=== PATIENT | male | born 1960 | race Caucasian/White ===

== ENCOUNTER 2018-05-27 22:12 | Emergency (ER) | payer MEDICAID ==
[~2018-05-27] VITALS: Ht 170.2 cm; Wt 82.5 kg
[2018-05-27 22:15] VITALS: BP 146/89
== END 2018-05-27 23:12 | disposition home or self-care (01) ==
LOC: ER 22:13
DX: T78.49XA Other allergy, initial encounter (principal); F84.0 Autistic disorder; I10 Essential (primary) hypertension; X58.XXXA Exposure to other specified factors, initial encounter
CPT/HCPCS: 99281

== ENCOUNTER 2018-11-14 05:44 | Day surgery (SDC) | payer MEDICAID ==
[2018-11-14] VITALS (13 sets, daily range): BP systolic 101–142; BP diastolic 60–89
[~2018-11-14] VITALS: Ht 165.1 cm; Wt 84.4 kg
[~2018-11-14 05:44] MED LIST: ACET-812 PO; CHOL500026 PO; CITRACAL PLUS; CLON0.5T23 PO; DOCUMENT DATE & TIME OF BETA-BLOCKER PO ONE; IBUP-1984 PO; LAMO200T PO; LIDOcaine 2% (20mg/ml) 5ml vial ONE; LORA-269 PO; LORA10TA7 PO; MAGN500T12 PO; METO-384 PO; MULT-16 PO; NIA500ERT PO; REGULOID; SERT100T10 PO; TRAZ-219 PO; dexamethasone sod phosphate 4mg/ml inj. ONE; famotidine 20mg tablet PO ONE; fentaNYL/PF 50MCG/1 ML 2ML syringe ONE; midazolam 2 mg/2 ml injection ONE; propofol inj 20 ML IV ONE; ringers solution, lacted 1,000 ML IV SCH
[2018-11-14 06:40] LABS: BASOPHILS # (AUTO) 0.1 X10'3 (0-0.2); BASOPHILS % (AUTO) 0.7 % (0-1); EOSINOPHILS # (AUTO) 0.2 X10'3 (0-0.9); EOSINOPHILS % (AUTO) 1.6 % (0-6); HEMATOCRIT 45.2 % (42.0-52.0); HEMOGLOBIN 15.4 g/dl (14.0-17.9); LYMPHOCYTES # (AUTO) 1.9 X10'3 (1.1-4.8); LYMPHOCYTES % (AUTO) 17.1 % (21-51); MEAN CORPUSCULAR HEMOGLOBIN 31.1 PG (27.0-31.0); MEAN CORPUSCULAR HGB CONC 34.1 g/dL (33.0-36.5); MEAN CORPUSCULAR VOLUME 91.2 FL (78-98); MEAN PLATELET VOLUME 8.2 FL (7.4-10.4); MONOCYTES # (AUTO) 0.7 X10'3 (0-0.9); MONOCYTES % (AUTO) 5.8 % (2-12); NEUTROPHILS # (AUTO) 8.5 X10'3 (1.8-7.7); NEUTROPHILS % (AUTO) 74.8 % (42-75); PLATELET COUNT 293 X10'3 (140-440); RED BLOOD COUNT 4.95 X10'6 (4.70-6.10); RED CELL DISTRIBUTION WIDTH 13.2 % (11.5-14.5); WHITE BLOOD COUNT 11.3 X10'3 (4.5-11.0)
[2018-11-14 06:58] LABS: ALANINE AMINOTRANSFERASE 30 U/L (12-78); ALBUMIN/GLOBULIN RATIO 0.9 (1.1-1.5); ALKALINE PHOSPHATASE 95 IU/L (46-116); ANION GAP 8 (8-16); ASPARTATE AMINO TRANSFERASE 18 U/L (10-37); BILIRUBIN,TOTAL 0.2 MG/DL (0.1-1.0); BLOOD UREA NITROGEN 8 MG/DL (7-18); BUN/CREATININE RATIO 6.8 (5.4-32.0); CALCIUM 9.3 MG/DL (8.5-10.1); CHLORIDE 104 MMOL/L (99-107); CREATININE 1.18 MG/DL (0.60-1.10); GLUCOSE 102 MG/DL (70-104); POTASSIUM 4.6 MMOL/L (3.5-5.1); SODIUM 140 MMOL/L (135-145); TOTAL CARBON DIOXIDE 28.5 MMOL/L (24-32); TOTAL PROTEIN 8.3 G/DL (6.4-8.2); eGFR 63 ML/MIN
[2018-11-14] MEDS ORDERED: famotidine/PF 10 mg/ml inj IV ONE (07:10)
--- NOTE | 2018-11-14 08:00 | NUR ---
NURSE ACCIDENTALLY DOCUMENTED ON PREOP CHECKLIST THAT THE BETA JULY WAS TAKEN AT 0800 ON 11/15/18, BUT IT WAS REALLY TAKEN AT 0500 ON 11/14/18.
[2018-11-14] MEDS ORDERED: ketorolac trometh. 30mg/ml inj. ONE (08:35)
[2018-11-14] MEDS ORDERED: sevoflurane 250ml liquid IH ONE (08:35)
[2018-11-14] MEDS ORDERED: MIDAZolam 5mg/5ml vial ONE (08:37)
[2018-11-14] MEDS ORDERED: fentaNYL /PF 50mcg/ml 5ml ampule ONE (08:59)
[2018-11-14] MEDS ORDERED: propofol inj 20 ML IV ONE (09:00)
[2018-11-14] MEDS ORDERED: rocuronium 10mg/ml inj IV ONE (09:01)
[2018-11-14] MEDS ORDERED: ceFAZolin 1000mg inj ONE ×2 (09:32)
[2018-11-14] MEDS ORDERED: dexamethasone sod phosphate 4mg/ml inj. ONE (11:01)
[2018-11-14] MEDS ORDERED: ondansetron/PF 4mg/2ml inj ONE (11:01)
[2018-11-14] MEDS ORDERED: gelatin sponge, absorbable (Gelfoam 100) sponge TP ONE (12:36)
--- NOTE | 2018-11-14 14:00 | NUR ---
Received from OR via [facility], accompanied by Anesthesiologist DR BRENNER and report given by Anesthesiolgist. PT VERY DROWSY W/ORAL AIRWAY, VSS. Addendum: 11/14/18 at 1412 by Shayy Guillermo RN Amended: Links added.
--- NOTE | 2018-11-14 16:00 | NUR ---
PT D/CD TO HOME W/C[facility] IN STABLE CONDITION, D/C INSTRUCTIONS GONE OVER AND GIVEN TO CARE[facility]ERS, BOTH VERBALIZED UNDERSTANDING. Addendum: 11/14/18 at 1620 by Shayy Guillermo RN Amended: Links added.
== END 2018-11-14 16:00 | disposition home or self-care (01) ==
LOC: PAS 05:44
PROVIDERS: ATTEND Dentist
DX: K02.9 Dental caries, unspecified (principal); K05.6 Periodontal disease, unspecified; K20.9 Esophagitis, unspecified; F84.0 Autistic disorder; G40.909 Epilepsy, unspecified, not intractable, without status epilepticus; I10 Essential (primary) hypertension; Z79.899 Other long term (current) drug therapy; Z88.8 Allergy status to other drugs, medicaments and biological substances; Z98.890 Other specified postprocedural states
CPT/HCPCS: 36415; 41899; 80053; 85025; 93005; J0690; J1100; J1885; J2001; J2250; J2405; J2704; J3010; J3490; J7120; A7000

== ENCOUNTER 2019-01-09 20:30 | Emergency (ER) | payer MEDICAID ==
[~2019-01-09] VITALS: Ht 177.8 cm; Wt 79.7 kg
[~2019-01-09 20:30] MED LIST changes: -DOCUMENT DATE & TIME OF BETA-BLOCKER PO ONE; -LIDOcaine 2% (20mg/ml) 5ml vial ONE; -dexamethasone sod phosphate 4mg/ml inj. ONE; -famotidine 20mg tablet PO ONE; -fentaNYL/PF 50MCG/1 ML 2ML syringe ONE; -midazolam 2 mg/2 ml injection ONE; -propofol inj 20 ML IV ONE; -ringers solution, lacted 1,000 ML IV SCH
[2019-01-09 20:56] VITALS: BP 136/82
[2019-01-09] MEDS ORDERED: LIDOcaine 1% w/epiNEPHrine 1:200,000 30ml vial IM ONE (21:15)
--- NOTE | 2019-01-09 21:29 | NUR ---
BACK FROM CT SCAN
== END 2019-01-09 23:24 | disposition home or self-care (01) ==
LOC: ER 20:30
DX: S01.112A Laceration without foreign body of left eyelid and periocular area, initial encounter (principal); I10 Essential (primary) hypertension; Z88.8 Allergy status to other drugs, medicaments and biological substances; Z79.899 Other long term (current) drug therapy; W18.39XA Other fall on same level, initial encounter; Y93.01 Activity, walking, marching and hiking; Y92.89 Other specified places as the place of occurrence of the external cause; Y99.8 Other external cause status
CPT/HCPCS: 12011; 70450; 99284; J3490

== ENCOUNTER 2019-02-14 09:03 | Emergency (ER) | payer MEDICAID ==
[~2019-02-14] VITALS: Ht 172.7 cm; Wt 80.0 kg
[2019-02-14 09:21] VITALS: BP 118/65
--- NOTE | 2019-02-14 09:25 | NUR ---
PATIENT TO RM 16 VIA [facility] AT BEDSIDE. PT HERE TODAY FOR VIT D THAT WAS NOT PRESCRIBED AND IS NECESSARY PT STABLE.
[2019-02-14] MEDS ORDERED: CHOL500049 PO (09:28)
== END 2019-02-14 09:50 | disposition home or self-care (01) ==
LOC: ER 09:04
DX: E55.9 Vitamin D deficiency, unspecified (principal); R41.82 Altered mental status, unspecified; I10 Essential (primary) hypertension; Z76.0 Encounter for issue of repeat prescription; Z88.8 Allergy status to other drugs, medicaments and biological substances; Z79.899 Other long term (current) drug therapy
CPT/HCPCS: 99284

== ENCOUNTER 2020-08-22 09:52 | Outpatient (CLI) | payer MEDICAID ==
[~2020-08-22 09:52] MED LIST changes: +CHOL500049 PO; -LAMO200T PO; +LAMO200T10 PO; -MULT-16 PO; +MULT-17 PO; -TRAZ-219 PO; +TRAZ-256 PO
== END 2020-08-22 23:59 | disposition home or self-care (01) ==
LOC: CARD DIAG 09:52
PROVIDERS: ATTEND Family Medicine
DX: I08.0 Rheumatic disorders of both mitral and aortic valves (principal)
CPT/HCPCS: 93306

== ENCOUNTER 2024-05-24 10:05 | Emergency (ER) | payer MEDICARE, MEDICAID ==
[~2024-05-24] VITALS: Ht 167.6 cm; Wt 83.5 kg
[~2024-05-24 10:05] MED LIST changes: +SERT-434 PO; -SERT100T10 PO
[2024-05-24] MEDS ORDERED: ASPI81TA52 PO (10:57)
[2024-05-24 11:28] VITALS: BP 119/74; PULSE 66; RESP 16; TEMP 97.3; O2SAT 98
== END 2024-05-24 11:31 | disposition home or self-care (01) ==
LOC: ER 10:05
DX: S92.332A Displaced fracture of third metatarsal bone, left foot, initial encounter for closed fracture (principal); S92.342A Displaced fracture of fourth metatarsal bone, left foot, initial encounter for closed fracture; M79.672 Pain in left foot; I10 Essential (primary) hypertension; Z88.8 Allergy status to other drugs, medicaments and biological substances; Z79.82 Long term (current) use of aspirin; Z79.899 Other long term (current) drug therapy; X58.XXXA Exposure to other specified factors, initial encounter; Y93.89 Activity, other specified; Y92.89 Other specified places as the place of occurrence of the external cause; Y99.8 Other external cause status
CPT/HCPCS: 29515; 73630; 99284; A6446; A6449

== ENCOUNTER 2024-07-26 12:48 | Emergency (ER) | payer MEDICARE, MEDICAID ==
[~2024-07-26] VITALS: Ht 162.6 cm; Wt 63.6 kg
[2024-07-26 12:56] VITALS: BP 125/68; PULSE 82; RESP 18; TEMP 97.6; O2SAT 98
== END 2024-07-26 16:12 | disposition home or self-care (01) ==
LOC: ER 12:48
DX: S92.812A Other fracture of left foot, initial encounter for closed fracture (principal); I10 Essential (primary) hypertension; Z88.8 Allergy status to other drugs, medicaments and biological substances; Z79.899 Other long term (current) drug therapy; X58.XXXA Exposure to other specified factors, initial encounter; Y93.89 Activity, other specified; Y92.89 Other specified places as the place of occurrence of the external cause; Y99.8 Other external cause status
CPT/HCPCS: 29515; 73620; 99284; A6446; A6449

== ENCOUNTER 2024-08-22 09:00 | Emergency (ER) | payer MEDICARE, MEDICAID ==
[~2024-08-22] VITALS: Ht 175.3 cm; Wt 81.8 kg
[2024-08-22 09:02] VITALS: BP 117/68; PULSE 67; RESP 16; TEMP 98; O2SAT 100
== END 2024-08-22 10:16 | disposition home or self-care (01) ==
LOC: ER 09:00
DX: S92.901D Unspecified fracture of right foot, subsequent encounter for fracture with routine healing (principal); F88 Other disorders of psychological development; I10 Essential (primary) hypertension; Z88.8 Allergy status to other drugs, medicaments and biological substances; Z79.899 Other long term (current) drug therapy
CPT/HCPCS: 29515; 99283; A6449

== ENCOUNTER 2024-10-02 09:54 | Emergency (ER) | payer MEDICARE, MEDICAID ==
[~2024-10-02] VITALS: Ht 167.6 cm; Wt 85.9 kg
[2024-10-02 09:56] VITALS: TEMP 102.3
[2024-10-02] MEDS: acetaminophen 325mg tablet PO ONE (10:05)
[2024-10-02 11:32] LABS: BILIRUBIN,URINE NEGATIVE (Neg); CLARITY,URINE CLEAR (Clear); COLOR,URINE YELLOW (Yellow); GLUCOSE, URINE NEGATIVE (Neg); KETONES,URINE NEGATIVE (Neg); LEUKOCYTE ESTERASE ,URINE NEGATIVE (Neg); NITRITES, URINE NEGATIVE (Neg); OCCULT BLOOD,URINE NEGATIVE (Neg); PROTEIN,URINE 100 mg/dl (Neg); UROBILINOGEN,URINE 0.2 E.U/dL (0.2-1.0)
[2024-10-02 11:36] LABS: UA COLLECTION TYPE CLN CATCH MIDSTREAM
[2024-10-02 11:38] LABS: BACTERIA,URINE NONE SEEN /HPF (Neg); MUCUS STRANDS FEW /LPF (Neg); RBC,URINE NONE SEEN /HPF (0-2); SQUAMOUS EPITHELIAL CELL,UR NONE SEEN /LPF (FEW); WBC,URINE 0-4 /HPF (0-4)
[2024-10-02 12:07] VITALS: BP 129/66; PULSE 101; RESP 17; O2SAT 99
== END 2024-10-02 12:11 | disposition home or self-care (01) ==
LOC: ER 09:55
DX: J11.1 Influenza due to unidentified influenza virus with other respiratory manifestations (principal); M25.551 Pain in right hip; I10 Essential (primary) hypertension; Z20.822 Contact with and (suspected) exposure to COVID-19; Z88.8 Allergy status to other drugs, medicaments and biological substances; W19.XXXA Unspecified fall, initial encounter; Y93.89 Activity, other specified; Y92.89 Other specified places as the place of occurrence of the external cause; Y99.8 Other external cause status
CPT/HCPCS: 36415; 71045; 73502; 81001; 87502; 87503; 87811; 99284